=== PATIENT | female | born 1975 | race African-American/Black ===

== ENCOUNTER → 2017-11-24 | Outpatient (CLI) | payer MEDICARE, MEDICAID ==
[2017-11-24 16:59] LABS: ANION GAP 13 (5-19); BLOOD UREA NITROGEN 13 mg/dL (7-20); CALCIUM 10.2 mg/dL (8.4-10.2); CARBON DIOXIDE 27 mmol/L (22-30); CHLORIDE 106 mmol/L (98-107); GLUCOSE 101 mg/dL (75-110); POTASSIUM 4.2 mmol/L (3.6-5.0); SODIUM 145.9 mmol/L (137-145)
[2017-11-24 17:04] LABS: URINE CREATININE 313.2 mg/dL (15-278); URINE PROTEIN 8.3 mg/dL (<12)
[2017-11-29 21:36] LABS: NORMETANEPHRINE 54 pg/mL (0-145)
[2017-11-30 10:34] LABS: METANEPHRINE 13 pg/mL (0-62)
== END ==
LOC: LAB 16:13
PROVIDERS: ATTEND Internal Medicine Hypertension Specialist
DX: I10 Essential (primary) hypertension (principal); R60.9 Edema, unspecified; I11.9 Hypertensive heart disease without heart failure; E66.9 Obesity, unspecified; R00.0 Tachycardia, unspecified
CPT/HCPCS: 36415; 80048; 82570; 83835; 84156

== ENCOUNTER 2018-06-23 12:07 | Emergency (ER) | payer MEDICARE, MEDICAID ==
[2018-06-23] MEDS ORDERED: ONDANSETRON 4 MG TAB.RAPDIS PO ONE (12:31)
[2018-06-23] MEDS ORDERED: CLONIDINE HCL 0.2 MG TABLET PO ONE (12:31)
--- NOTE | 2018-06-23 12:38 | ER Document Report ---
ED Medical Screen (RME) - General Chief Complaint: High Blood Pressure Stated Complaint: BLOOD PRESSURE ISSUES Time Seen by Provider: 06/23/18 12:31 Primary Care Provider: MARCIE CRUZ MD [Primary Care Provider] - Follow up as needed Mode of Arrival: Ambulatory Information source: Patient TRAVEL OUTSIDE OF THE [place] IN LAST 30 DAYS: No - HPI Patient complains to provider of: elevated BP Onset: Yesterday - pt with h/o HTN with elevated BP starting yesterday. No change in meds - Related Data Allergies/Adverse Reactions: [facility] Allergy (Verified 06/23/18 12:09) tramadol Allergy (Verified 06/23/18 12:09) Physical Exam - Vital signs Vitals: Temp Pulse Resp BP Pulse Ox 98.3 F 83 16 209/126 H 97 06/23/18 12:26 06/23/18 12:26 06/23/18 12:26 06/23/18 12:26 06/23/18 12:26 Course - Vital Signs Vital signs: Temp Pulse Resp BP Pulse Ox 98.3 F 83 16 209/126 H 97 06/23/18 12:26 06/23/18 12:26 06/23/18 12:26 06/23/18 12:26 06/23/18 12:26 Doctor's Discharge - Discharge Referrals: MARCIE CRUZ MD [Primary Care Provider] - Follow up as needed
[2018-06-23 13:07] LABS: ABSOLUTE LYMPHOCYTES (AUTO) 3.7 10^3/uL (0.5-4.7); ABSOLUTE MONOCYTES (AUTO) 0.6 10^3/uL (0.1-1.4); ABSOLUTE NEUT (AUTO) 6.8 10^3/uL (1.7-8.2); BASOPHILS % (AUTO) 0.4 % (0-2); EOSINOPHILS % (AUTO) 0.4 % (0-6); HEMATOCRIT 38.6 % (36.0-47.0); HEMOGLOBIN 12.5 g/dL (12.0-15.5); LYMPHOCYTES % (AUTO) 33.2 % (13-45); MEAN CORPUSCULAR HEMOGLOBIN 21.2 pg (27.0-33.4); MEAN CORPUSCULAR HGB CONC 32.5 g/dL (32.0-36.0); MEAN CORPUSCULAR VOLUME 65 fl (80-97); MONOCYTES % (AUTO) 5.6 % (3-13); PLATELET COUNT 350 10^3/uL (150-450); RED BLOOD COUNT 5.91 10^6/uL (3.72-5.28); RED CELL DISTRIBUTION WIDTH 17.2 % (11.5-14.0); SEGMENTED NEUTROPHILS % (AUTO) 60.4 % (42-78); TOTAL CELLS COUNTED % (AUTO) 100 %; WHITE BLOOD COUNT 11.2 10^3/uL (4.0-10.5)
[2018-06-23 13:20] LABS: ALANINE AMINOTRANSFERASE 28 U/L (9-52); ALBUMIN 4.6 g/dL (3.5-5.0); ALKALINE PHOSPHATASE 142 U/L (38-126); ANION GAP 12 (5-19); ASPARTATE AMINO TRANSFERASE 20 U/L (14-36); BILIRUBIN,DIRECT 0.2 mg/dL (0.0-0.4); BILIRUBIN,TOTAL 0.5 mg/dL (0.2-1.3); BLOOD UREA NITROGEN 12 mg/dL (7-20); CALCIUM 10.8 mg/dL (8.4-10.2); CARBON DIOXIDE 30 mmol/L (22-30); CHLORIDE 100 mmol/L (98-107); CREATINE KINASE 56 U/L (30-135); GLUCOSE 115 mg/dL (75-110); POTASSIUM 4.5 mmol/L (3.6-5.0); SODIUM 141.5 mmol/L (137-145); TOTAL PROTEIN 8.6 g/dL (6.3-8.2)
[2018-06-23 13:32] LABS: CREATINE KINASE MB 0.68 ng/mL (<4.55)
[2018-06-23 13:33] LABS: TROPONIN I < 0.012 ng/mL
[2018-06-23] MEDS ORDERED: ACETAMINOPHEN 325 MG TABLET PO ONE (14:19)
--- NOTE | 2018-06-23 15:12 | ER Document Report ---
ED General - General Chief Complaint: High Blood Pressure Stated Complaint: BLOOD PRESSURE ISSUES Time Seen by Provider: 06/23/18 12:31 Primary Care Provider: MARCIE CRUZ MD [Primary Care Provider] - Follow up as needed Mode of Arrival: Ambulatory Information source: Patient TRAVEL OUTSIDE OF THE [place] IN LAST 30 DAYS: No - HPI Notes: Patient is a 43-year-old female history of labile hypertension presents to the emergency department with report of elevated blood pressures at home and also in the orthopedic clinic where she was receiving physical therapy. The patient states she has been compliant with her medications which include spironolactone and chlorthalidone in the morning and doxazosin and diltiazem in the evening. She takes as needed clonidine at home for elevated blood pressures and received clonidine on arrival to the emergency department. She describes having a mild headache, not the worst of her life. She states she has had the same headache multiple times previously, especially when she is had a slightly elevated blood pressure. The patient states she had no head injury or neck stiffness or numbness or paresthesia. The patient denies any significant nausea or vomiting. The patient reports no abdominal pain or chest pain or difficulty breathing. Patient reports in the past she has had negative head CTs and even a negative lumbar puncture related to the headaches in the past. - Related Data Allergies/Adverse Reactions: amlodipine [From [facility]] Allergy (Verified 06/23/18 12:09) tramadol Allergy (Verified 06/23/18 12:09) Past Medical History - General Information source: Patient - Social History Smoking Status: Never Smoker Chew tobacco use (# tins/day): No Frequency of alcohol use: None Drug Abuse: None Lives with: Family Family History: Reviewed & Not Pertinent Patient has suicidal ideation: No Patient has homicidal ideation: No - Past Medical History Cardiac Medical History: Reports: Hx Atrial Fibrillation, Hx Hypertension Endocrine Medical History: Reports: Hx Diabetes Mellitus Type 2 Renal/ Medical History: Denies: Hx Peritoneal Dialysis Past Surgical History: Reports: Hx Breast Surgery - cyst removal, Hx Nyasia cystectomy, Hx Hysterectomy, Hx Orthopedic Surgery - L shoulder rotator cuff Review of Systems - Review of Systems -: Yes All other systems reviewed and negative Physical Exam - Vital signs Vitals: Temp Pulse Resp BP Pulse Ox 98.3 F 83 16 209/126 H 97 06/23/18 12:26 06/23/18 12:26 06/23/18 12:26 06/23/18 12:26 06/23/18 12:26 - Notes Notes: PHYSICAL EXAMINATION: GENERAL: Well-appearing, well-nourished and in no acute distress. HEAD: Atraumatic, normocephalic. Anterior chambers are clear. No temporal arterial tenderness. No TMJ joint tenderness. EYES: Pupils equal round and reactive to light, extraocular movements intact, conjunctiva are normal. ENT: Nares patent, oropharynx clear without exudates. Moist mucous membranes. NECK: Normal range of motion, supple without lymphadenopathy LUNGS: Breath sounds clear to auscultation bilaterally and equal. No wheezes rales or rhonchi. HEART: Regular rate and rhythm without murmurs ABDOMEN: Soft, nontender, nondistended abdomen. No guarding, no rebound. No masses appreciated. Female : deferred Musculoskeletal: Normal range of motion, no pitting or edema. No cyanosis. NEUROLOGICAL: Cranial nerves grossly intact. Normal speech, normal gait. Normal sensory, motor exams. No cerebellar ataxia. Normal reflexes. PSYCH: Normal mood, normal affect. SKIN: Warm, Dry, normal turgor, no rashes or lesions noted. Course - Re-evaluation Re-evalutation: 06/23/18 15:13 After clonidine, the patient's blood pressure came down to 133/77 and she was given Tylenol and her headache was lately resolved and she felt stable for discharge. No evidence for electrolyte imbalance or anemia or acute UT or ischemia or CVA or TIA or acute neurologic compromise. No evidence for endorgan disease or damage. - Vital Signs Vital signs: Temp Pulse Resp BP Pulse Ox 98.3 F 83 18 157/101 H 99 06/23/18 12:26 06/23/18 12:26 06/23/18 13:32 06/23/18 13:32 06/23/18 13:32 - Laboratory Result Diagrams: 06/23/18 12:50 06/23/18 12:50 Laboratory results interpreted by me: 06/23/18 06/23/18 06/23/18 12:50 12:50 12:50 WBC 11.2 H RBC 5.91 H MCV 65 L MCH 21.2 L RDW 17.2 H Glucose 115 H Calcium 10.8 H Alkaline Phosphatase 142 H NT-Pro-B Natriuret Pep 134 H Total Protein 8.6 H - EKG Interpretation by Me EKG shows normal: Sinus rhythm Additional EKG results interpreted by me: 06/23/18 15:14 EKG is interpreted by me showed normal sinus rhythm heart rate of 69. There is no gross evidence for acute UT or ischemia. There is no QT abnormalities. Discharge - Discharge Clinical Impression: Hypertension Qualifiers: Hypertension type: essential hypertension Qualified Code(s): I10 - Essential (primary) hypertension Headache Qualifiers: Headache type: unspecified Headache chronicity pattern: acute headache Int ractability: not intractable Qualified Code(s): R51 - Headache Condition: Stable Disposition: HOME, SELF-CARE Instructions: High Blood Pressure ([facility]), Headache ([facility]) Forms: Elevated Blood Pressure Referrals: MARCIE CRUZ MD [Primary Care Provider] - Follow up in 1 week
[2018-06-23 15:28] VITALS: BP 133/77
--- NOTE | 2018-06-23 21:03 | EKG REPORT ---
SEVERITY:- ABNORMAL ECG - SINUS RHYTHM LVH BY VOLTAGE ABNORMAL T, CONSIDER ISCHEMIA, LATERAL LEADS : Confirmed by: Luisana Bennett MD 23-Jun-2018 21:02:06
== END 2018-06-23 15:27 | disposition home or self-care (01) ==
LOC: ER 12:07
DX: I10 Essential (primary) hypertension (principal); R51 Headache; E11.9 Type 2 diabetes mellitus without complications; Z79.899 Other long term (current) drug therapy; Z88.8 Allergy status to other drugs, medicaments and biological substances; Z88.5 Allergy status to narcotic agent
CPT/HCPCS: 93005; 99283; 36415; 82553; 82550; 85025; 80053; 84484; 83880; 93010; A9270 ×3; S0119

== ENCOUNTER 2018-10-03 11:25 | Emergency (ER) | payer MEDICARE, MEDICAID ==
[2018-10-03] MEDS ORDERED: ONDANSETRON HCL INJ/PF 4 MG/2 ML SDV IV ONE (11:50)
--- NOTE | 2018-10-03 11:52 | ER Document Report ---
ED Medical Screen (RME) - General Chief Complaint: Abdominal Pain Stated Complaint: ABDOMINAL PAIN Time Seen by Provider: 10/03/18 11:50 Primary Care Provider: MARCIE CRUZ MD [Primary Care Provider] - Follow up as needed Information source: Patient Notes: Patient presents with a 10-day history of left lower quadrant pain and left flank pain. Patient reports nausea. Patient has been seen at the [place] ER for this complaint and had x-rays and labs performed. Patient also did see her primary doctor and was advised that if she was still having pain to come here for CT scan. hx: Hypertension, diabetes, hyperlipidemia, chronic kidney disease osteoarthritis, hysterectomy, cholecystectomy I have greeted and performed a rapid initial assessment of this patient. A comprehensive ED assessment and evaluation of the patient, analysis of test results and completion of the medical decision making process will be conducted by additional ED providers. TRAVEL OUTSIDE OF THE [place] IN LAST 30 DAYS: No - Related Data Allergies/Adverse Reactions: amlodipine [From [facility]] Allergy (Verified 10/03/18 11:30) tramadol Allergy (Verified 10/03/18 11:30) Past Medical History - Past Medical History Cardiac Medical History: Reports: Hx Atrial Fibrillation, Hx Hypertension Endocrine Medical History: Reports: Hx Diabetes Mellitus Type 2 Renal/ Medical History: Denies: Hx Peritoneal Dialysis Past Surgical History: Reports: Hx Breast Surgery - cyst removal, Hx Cholecystectomy, Hx Hysterectomy, Hx Orthopedic Surgery - L shoulder rotator cuff Physical Exam - Vital signs Vitals: Temp Pulse Resp BP Pulse Ox 98.0 F 65 20 120/81 97 10/03/18 11:44 10/03/18 11:44 10/03/18 11:44 10/03/18 11:44 10/03/18 11:44 - Abdominal Tenderness: Tender - Left lower pelvic Course - Vital Signs Vital signs: Temp Pulse Resp BP Pulse Ox 98.0 F 65 20 120/81 97 10/03/18 11:44 10/03/18 11:44 10/03/18 11:44 10/03/18 11:44 10/03/18 11:44 Doctor's Discharge - Discharge Referrals: MARCIE CRUZ MD [Primary Care Provider] - Follow up as needed
[2018-10-03 12:52] LABS: ABSOLUTE BASOPHILS # (AUTO) 0.1 10^3/uL (0.0-0.2); ABSOLUTE MONOCYTES (AUTO) 0.6 10^3/uL (0.1-1.4); ABSOLUTE NEUT (AUTO) 6.3 10^3/uL (1.7-8.2); BASOPHILS % (AUTO) 0.9 % (0-2); EOSINOPHILS % (AUTO) 0.2 % (0-6); HEMATOCRIT 35.8 % (36.0-47.0); HEMOGLOBIN 11.6 g/dL (12.0-15.5); LYMPHOCYTES % (AUTO) 30.1 % (13-45); MEAN CORPUSCULAR HEMOGLOBIN 20.9 pg (27.0-33.4); MEAN CORPUSCULAR HGB CONC 32.4 g/dL (32.0-36.0); MEAN CORPUSCULAR VOLUME 65 fl (80-97); MONOCYTES % (AUTO) 5.9 % (3-13); PLATELET COUNT 342 10^3/uL (150-450); RED BLOOD COUNT 5.55 10^6/uL (3.72-5.28); RED CELL DISTRIBUTION WIDTH 17.3 % (11.5-14.0); SEGMENTED NEUTROPHILS % (AUTO) 62.9 % (42-78); TOTAL CELLS COUNTED % (AUTO) 100 %
[2018-10-03 13:04] LABS: ALANINE AMINOTRANSFERASE 295 U/L (9-52); ALBUMIN 4.6 g/dL (3.5-5.0); ALKALINE PHOSPHATASE 238 U/L (38-126); ANION GAP 9 (5-19); ASPARTATE AMINO TRANSFERASE 286 U/L (14-36); BILIRUBIN,DIRECT 0.3 mg/dL (0.0-0.4); BILIRUBIN,TOTAL 0.3 mg/dL (0.2-1.3); BLOOD UREA NITROGEN 20 mg/dL (7-20); CALCIUM 10.1 mg/dL (8.4-10.2); CARBON DIOXIDE 29 mmol/L (22-30); CHLORIDE 101 mmol/L (98-107); GLUCOSE 130 mg/dL (75-110); LIPASE 493.3 U/L (23-300); POTASSIUM 4.7 mmol/L (3.6-5.0); SODIUM 139.3 mmol/L (137-145); TOTAL PROTEIN 8.4 g/dL (6.3-8.2)
[2018-10-03 13:14] LABS: ANISOCYTOSIS 1+; HYPOCHROMASIA 3+; POIKILOCYTOSIS SLIGHT
[2018-10-03 13:15] LABS: OVALOCYTES SLIGHT; PLATELET COMMENT ADEQUATE; POLYCHROMASIA SLIGHT; TARGET CELLS 1+
[2018-10-03 13:27] LABS: APPEARANCE,URINE CLEAR; BILIRUBIN,URINE NEGATIVE (NEGATIVE); COLOR,URINE STRAW; GLUCOSE, URINE NEGATIVE (NEGATIVE); KETONES,URINE NEGATIVE (NEGATIVE); LEUKOCYTE ESTERASE,URINE NEGATIVE (NEGATIVE); NITRITE,URINE NEGATIVE (NEGATIVE); PROTEIN,URINE NEGATIVE (NEGATIVE); URINE SPECIFIC GRAVITY 1.014; UROBILINOGEN,URINE NEGATIVE mg/dL (<2.0)
--- NOTE | 2018-10-03 14:34 | ER Document Report ---
ED GI/ - General Chief Complaint: Abdominal Pain Stated Complaint: ABDOMINAL PAIN Time Seen by Provider: 10/03/18 11:50 Primary Care Provider: MARCIE CRUZ MD [Primary Care Provider] - Follow up as needed Notes: Patient is a 43-year-old female with a history of hypertension, high cholesterol, diabetes, chronic kidney disease, osteoarthritis, hysterectomy and cholecystectomy who presents to the emergency department with a chief complaint of left lower quadrant pain that began about 2 weeks ago. Patient states that she was seen in the [place] emergency department for an evaluation and was given Bentyl and phenergan. Patient states despite the medication she continued to have pain. Patient states she did follow-up with her primary care physician who stated she was constipated. Patient states she is attempted 3 enemas, MiraLAX, mag citrate with bowel movements but continues to have the left lower quadrant pain. Patient denies fever but has reported chills. Patient states she did see GI last year she was bloated. Patient states she was diagnosed with internal hemorrhoids and diverticulosis. Patient states over the past few weeks she has noticed some blood in the stool. Patient states her last bowel movement was today and was soft without notable blood. TRAVEL OUTSIDE OF THE [place] IN LAST 30 DAYS: No - Related Data Allergies/Adverse Reactions: [facility]ine [From [facility]] Allergy (Verified 10/03/18 11:30) tramadol Allergy (Verified 10/03/18 11:30) Past Medical History - General Information source: Patient - Social History Smoking Status: Never Smoker Chew tobacco use (# tins/day): No Frequency of alcohol use: None Drug Abuse: None Family History: Reviewed & Not Pertinent Patient has suicidal ideation: No Patient has homicidal ideation: No - Past Medical History Cardiac Medical History: Reports: Hx Atrial Fibrillation, Hx Hypertension Endocrine Medical History: Reports: Hx Diabetes Mellitus Type 2 Renal/ Medical History: Denies: Hx Peritoneal Dialysis Past Surgical History: Reports: Hx Breast Surgery - cyst removal, Hx Cholec ystectomy, Hx Hysterectomy, Hx Orthopedic Surgery - L shoulder rotator cuff Physical Exam - Vital signs Vitals: Temp Pulse Resp BP Pulse Ox 98.0 F 65 20 120/81 97 10/03/18 11:44 10/03/18 11:44 10/03/18 11:44 10/03/18 11:44 10/03/18 11:44 - Notes Notes: GENERAL: Well-appearing, well-nourished and in no acute distress. HEAD: Atraumatic, normocephalic. EYES: Pupils equal round and reactive to light, extraocular movements intact, sclera anicteric, conjunctiva are normal. ENT: Nares patent, oropharynx clear without exudates. Moist mucous membranes. NECK: Normal range of motion, supple without lymphadenopathy or JVD. LUNGS: Breath sounds clear to auscultation bilaterally and equal. No wheezes rales or rhonchi. HEART: Regular rate and rhythm without murmurs, rubs or gallops. ABDOMEN: Soft, obese, round, LUQ and LLQ tenderness, hyperactive bowel sounds. No guarding, no rebound. No masses appreciated. BACK: No cervical, thoracic, lumbar midline tenderness. No saddle anesthesia, normal distal neurovascular exam. GENITOURINARY: Deferred. EXTREMITIES: Normal range of motion, no pitting or edema. No clubbing or cyanosis. NEUROLOGICAL: Cranial nerves II through XII grossly intact. Normal speech, normal gait. PSYCH: Normal mood, normal affect. SKIN: Warm, Dry, normal turgor, no rashes or lesions noted. Course - Re-evaluation Re-evalutation: 10/03/18 15:[address] Bangura my supervising physician who states to obtain a right upper quadrant ultrasound although patient has had her gallbladder removed. Patient does have elevated liver enzymes. We will also order IV oral and contrast CT. I did discuss with the patient and she is in agreement with plan. 10/03/18 19:03 Patient's abdominal ultrasound and CT was negative. I did reevaluate the patient who continues to have a small amount of the left lower quadrant tenderness. Patient reports she has had a hysterectomy. Patient states this is the same type of pain that has been present for 2 weeks. Patient had stated she did see some blood in her stool a few days ago. I did perform a Hemoccult test with a rectal exam. Stool was Hemoccult negative. Patient states that she was prescribed Bentyl a week ago which did seem to help with her symptoms. I did inform the patient the importance of following up with her primary care physician as well as a circuit designer to rule out possible Crohn's, celiac disease which she is concerned for any other concerning signs or symptoms. I did inform the patient that her liver enzymes were slightly elevated and that these needed to be followed up with. 10/03/18 19:11 Patient remains nontoxic-appearing. Patient okay with being discharged home in agreement with plan. States she will follow-up with both her primary and her circuit designer. - Vital Signs Vital signs: Temp Pulse Resp BP Pulse Ox 98.0 F 65 20 120/81 97 10/03/18 11:44 10/03/18 11:44 10/03/18 11:44 10/03/18 11:44 10/03/18 11:44 - Laboratory Result Diagrams: 10/03/18 12:21 10/03/18 12:21 Laboratory results interpreted by me: 10/03/18 10/03/18 12:21 12:21 RBC 5.55 H Hgb 11.6 L Hct 35.8 L MCV 65 L MCH 20.9 L RDW 17.3 H Est GFR (Non-Af Amer) 50 L Glucose 130 H AST 286 H ALT 295 H Alkaline Phosphatase 238 H Total Protein 8.4 H Lipase 493.3 H - Diagnostic Test Radiology reviewed: Reports reviewed Discharge - Discharge Clinical Impression: Lower abdominal pain Condition: Stable Disposition: HOME, SELF-CARE Instructions: Abdominal Pain ([facility]) Additional Instructions: Today you were seen in the emergency department for abdominal pain. We did obtain a abdominal ultrasound as well as a CT of the abdomen. The CT of the abdomen did not show any abnormalities but did show mild sigmoid diverticulosis. There was not a active infection that showed up in your lab work or your imag ing. Your liver enzymes were slightly elevated. He will need to have these monitored and rechecked by your primary care physician or by her circuit designer. I have provided you with a copy of these laboratory findings that are abnormal. Please return to the emergency department for severe pain, vomiting, blood in the vomitus urine or bowel movements, fever swelling of the abdomen or any other concerning signs or symptoms. Need to follow-up with your circuit designer to rule out irritable bowel syndrome, Crohn's, celiac disease or other gastroenterology diagnoses. Abdominal Pain There are many causes of abdominal pain. Pain can mean a serious problem requiring surgery (such as appendicitis). It can also be an innocent problem that goes away on its own (such as a viral infection). Often, time must pass to determine the cause of pain. The physician does not feel that hospitalization is necessary, at present. Things may change within the next 24 hours. Call the doctor or come back for re- examination if any problems occur, such as: (1) Pain that becomes more severe, steady, or becomes concentrated in one specific area. Also, pain that is more severe with movement or coughing. (2) Vomiting that persists or becomes more frequent. (3) Blood in the vomitus, urine, or bowel movements. Blood in the stool may have a tarry or black appearance. (4) Shaking chills or fever greater than 100 degrees F. (5) The abdomen becomes more distended or swollen. (6) Bowel movements cease. (7) Failure to improve as expected. Prescriptions: Dicyclomine HCl [Bentyl 20 mg Tablet] 20 mg PO TID #12 tablet Referrals: MARCIE CRUZ MD [Primary Care Provider] - Follow up as needed
[2018-10-03] MEDS ORDERED: MORPHINE SULFATE 10 MG/ML INJ IV ONE (15:23)
[2018-10-03] MEDS ORDERED: NORMAL SALINE 1000 ML 1,000 ML IV ONE (15:23)
--- NOTE | 2018-10-03 16:47 | RADIOLOGY REPORT (SQ) ---
EXAM DESCRIPTION: U/S ABDOMEN LIMITED W/O DOP COMPLETED DATE/TIME: 10/03/2018 4:11 pm REASON FOR STUDY: HX. NEVA, RULE OUT STONE IN CBD COMPARISON: CT ANGIO CHEST 02/18/2012 TECHNIQUE: Dynamic and static grayscale images acquired of the abdomen and recorded on PACS. Additio nal selected color Doppler and spectral images recorded. LIMITATIONS: None. FINDINGS: PANCREAS: Midline pancreas unremarkable LIVER: No masses. Echotexture normal. LIVER VASCULATURE: Normal directional flow of the main portal vein and hepatic veins. GALLBLADDER: Surgically absent ULTRASOUND-DETECTED MICHELLE'S SIGN: Negative. INTRAHEPATIC DUCTS AND COMMON DUCT: CBD and intrahepatic ducts normal caliber. No filling defects. C ommon bile duct 6 mm in diameter. Distal most common duct not well seen due to duodenum gas. INFERIOR VENA CAVA: Normal flow. AORTA: No aneurysm. RIGHT KIDNEY: Normal size. Normal echogenicity. No solid or suspicious masses. No hydronephrosis. No calcifications. PERITONEAL AND RIGHT PLEURAL SPACE: No ascites or effusions. OTHER: No other significant findings. IMPRESSION: Post cholecystectomy. No intrahepatic or extrahepatic biliary ductal dilatation. Dista l common duct not well seen due to duodenum gas. TECHNICAL DOCUMENTATION: JOB ID: [id number] [facility]- All Rights Reserved Reading location - IP/workstation name: [email or web address]
--- NOTE | 2018-10-03 18:30 | RADIOLOGY REPORT (SQ) ---
EXAM DESCRIPTION: CT ABD/PELVIS WITH IV ORAL COMPLETED DATE/TIME: 10/03/2018 6:03 pm REASON FOR STUDY: LLQ PAIN COMPARISON: None. TECHNIQUE: CT scan of the abdomen and pelvis performed using helical scanning technique with dynamic intravenous contrast injection. No oral contrast. Images reviewed with lung, soft tissue, and bone w indows. Reconstructed coronal and sagittal MPR images reviewed. Delayed images for evaluation of the urinary system also acquired. All images stored on PACS. All CT scanners at this facility use dose modulation, iterative reconstruction, and/or weight based d osing when appropriate to reduce radiation dose to as low as reasonably achievable (ALARA). [facility]: Dose Right [facility]: CareDose [facility]: Dose Right [facility]: Teradose 4D [facility]: Ouner CONTRAST TYPE AND DOSE: contrast/concentration: Isovue 350.00 mg/ml; Total Contrast Delivered: 100.0 ml; Total Saline Delivered: 72.0 ml RENAL FUNCTION: GFR > 60. RADIATION DOSE: CT Rad equipment meets quality standard of care and radiation dose reduction techniq ues were employed. CTDIvol: 17.7 - 20.6 mGy. DLP: 2022 mGy-cm.. LIMITATIONS: None. FINDINGS: LOWER CHEST: Minimal basilar subsegmental atelectasis. LIVER: Normal size. No enhancing masses. No dilated ducts. SPLEEN: Normal size. No focal lesions. PANCREAS: No masses identified. No significant calcifications. No adjacent inflammation or peripancre atic fluid collections. Pancreatic duct not dilated. GALLBLADDER: Surgically absent. ADRENAL GLANDS: No significant masses. RIGHT KIDNEY AND URETER: No cysts identified. No solid masses identified. No calcified stones. No hyd ronephrosis or hydroureter. LEFT KIDNEY AND URETER: No cysts identified. No solid masses identified. No calcified stones. No hydr onephrosis or hydroureter. AORTA AND VESSELS: No aneurysm. No dissection. Renal arteries, SMA, celiac without significant stenos is. RETROPERITONEUM: No bulky retroperitoneal adenopathy. BOWEL AND PERITONEAL CAVITY: No obstruction or inflammatory changes. Mild sigmoid diverticulosis. N o free fluid. APPENDIX: Normal. PELVIS: Prior hysterectomy. No free fluid. Unremarkable bladder. ABDOMINAL WALL: No masses. No hernias. BONES: No acute findings. OTHER: No other significant finding. IMPRESSION: NO ACUTE FINDINGS IN THE ABDOMEN OR PELVIS ON CT SCAN WITH IV CONTRAST. TECHNICAL DOCUMENTATION: JOB ID: [id number] Quality ID # [id number]: Final reports with documentation of one or more dose reduction techniques (e.g., Au tomated exposure control, adjustment of the mA and/or kV according to patient size, use of iterative reconstruction technique) 2010 [facility]- All Rights Reserved Reading location - IP/workstation name: [email or web address]
[2018-10-03 19:26] VITALS: BP 135/84
== END 2018-10-03 19:29 | disposition home or self-care (01) ==
LOC: ER 11:25
DX: R10.30 Lower abdominal pain, unspecified (principal); R10.32 Left lower quadrant pain; R74.8 Abnormal levels of other serum enzymes; I12.9 Hypertensive chronic kidney disease with stage 1 through stage 4 chronic kidney disease, or unspecified chronic kidney disease; E11.22 Type 2 diabetes mellitus with diabetic chronic kidney disease
CPT/HCPCS: 99284; 96361; 96374; 96375; 36415; 83690; 85025; 80053; 81001; 76705; 74177; J2270; J2405; J7030